=== PATIENT | male | born 1985 | race Caucasian/White ===

== ENCOUNTER 2021-02-09 10:32 | Emergency (ER) | payer OTHER ==
[~2021-02-09] VITALS: Ht 167.6 cm; Wt 76.2 kg
--- NOTE | 2021-02-09 10:37 | NUR ---
PT BIBRA FROM WORK C/O L KNEE PAIN, HE WAS TRYING TO CLOSE AN INDUSTRIALIZED DUMPSTER WHEN HIS L KNEE BUCKLE AND POSSIBLY GOT DISLOCATED. 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 PT AFFECTED EXTREMITY SPLINTED. DIANA MINOR.
[2021-02-09] MEDS ORDERED: MORPHINE SULFATE INJ 4 MG/ML DISP.SYRIN ONE (10:41)
[2021-02-09] MEDS ORDERED: ONDANSETRON HCL/PF 4 MG/2 ML VIAL ONE (10:41)
--- NOTE | 2021-02-09 10:41 | NUR ---
DR FLORES AT BEDSIDE FOR EVAL.
[2021-02-09] MEDS ORDERED: KETOROLAC TROMETHAMINE 15 MG/ML VIAL ONE (10:42)
[2021-02-09] MEDS ORDERED: MORPHINE SULFATE INJ 2 MG/ML DISP.SYRIN IV ONE (11:00)
[2021-02-09] MEDS ORDERED: ONDANSETRON HCL/PF - ER 4 MG/2 ML VIAL IV ONE (11:00)
[2021-02-09] MEDS ORDERED: KETOROLAC TROMETHAMINE INJ 30 MG/ML VIAL IV ONE (11:00)
--- NOTE | 2021-02-09 11:00 | NUR ---
RADIOLOGY AT BEDSIDE FOR L KNEE/L TIB/FIB XRAY.
[2021-02-09] MEDS ORDERED: ETOMIDATE 2 MG/ML VIAL ONE (11:07)
--- NOTE | 2021-02-09 11:28 | NUR ---
PT NOW AWAKE S/P REDUCTION. STABLE VITALS. WILL CONTINUE TO MONITOR.
--- NOTE | 2021-02-09 11:30 | NUR ---
RADIOLOGY BACK AT BEDSIDE FOR L KNEE XRAY S/P REDUCTION.
[2021-02-09] MEDS ORDERED: OXYC-128 PO (11:46)
[2021-02-09] MEDS ORDERED: IBUP-1957 PO (11:46)
[2021-02-09] MEDS ORDERED: ETOMIDATE 2 MG/ML VIAL IV ONE (12:00)
--- NOTE | 2021-02-09 12:19 | NUR ---
PT PROVIDED W/ KNEE IMMOBILIZER. WAS PROVIDED W/ CRUTCHES AND DEMONSTRATED PROPER USE. IV LINE DISCONTINUED. DISCHARGE HOME IN STABLE CONDITION.
[2021-02-09 12:21] VITALS: BP 127/81
== END 2021-02-09 12:21 | disposition home or self-care (01) ==
LOC: ER 10:34
DX: S83.095A Other dislocation of left patella, initial encounter (principal); J45.909 Unspecified asthma, uncomplicated; W18.39XA Other fall on same level, initial encounter; Y93.89 Activity, other specified; Y92.89 Other specified places as the place of occurrence of the external cause; Y99.8 Other external cause status
CPT/HCPCS: 27560; 73560; 73564; 73590; 96374; 96375; 99152; 99285; J1885; J2270; J2405; J3490; J7030; G0500